=== PATIENT | male | born 1975 | race Caucasian/White ===

== ENCOUNTER 2018-01-31 08:52 | Day surgery (SDC) | payer OTHER ==
[~2018-01-31 08:52] MED LIST: ACIDOPHILUS1 EAC3 PO; CIPRO500 MG PO; CIPROFLOXACIN500 MG PO; FLAGYL500MG PO; Intestinex CAP PO; METRONIDAZOLE500 MG PO; PANTOPRAZOLE SO40 MG PO; ZANTAC150 M3 PO
== END 2018-01-31 09:50 | disposition home or self-care (01) ==
LOC: AMB-ENDOS 08:52
DX: D13.1 Benign neoplasm of stomach (principal)